=== PATIENT | male | born 1970 | race Caucasian/White ===

== ENCOUNTER 2017-04-03 23:34 | Emergency (ER) | payer MEDICARE ==
[2017-04-04] VITALS: BP 107/64; PULSE 120; RESP 20; TEMP 99; O2SAT 95
[2017-04-04] MEDS ORDERED: Oxycodone/Acetaminophen 5/325 mg Tab PO STA (00:30)
[2017-04-04] MEDS ORDERED: Oxycodone/Acetaminophen 5/325 mg Tab ONE (00:42)
--- NOTE | 2017-04-04 00:55 | ED PDOC ---
HPI: Back Time Seen by Provider: 04/04/17 00:26 Chief Complaint (Nursing): Back Pain Chief Complaint (Provider): Back pain and bleeding History Per: Patient History/Exam Limitations: no limitations Onset/Duration Of Symptoms: Hrs (x 5 hours) Current Symptoms Are (Timing): Better Additional Complaint(s): Graeme Ramesh is a 46 y/o male with a past medical history chronic back pain s/p laminectomy and spinal fusion surgery, who presents to the ED complaining of bleeding from a back incision site with associated back pain, onset at 7pm. Patient was seen earlier today (04/03/2017) at the [facility] for implantation of spinal stimulator. At 7pm after returning from procedure, he noticed dressing saturated with blood. Upon arrival to ED, bleeding has stopped. Patient did not fill Rx given for oxycodone. Denies fever, nausea, vomiting, diarrhea, shortness of breath, and chest pain. PMD: Nabor Linton MD Past Medical History Reviewed: Historical Data, Nursing Documentation, Vital Signs Vital Signs: Last Vital Signs Temp 99 F 04/03/17 23:57 Pulse 120 H 04/03/17 23:57 Resp 20 04/03/17 23:57 BP 107/64 04/03/17 23:57 Pulse Ox 95 04/03/17 23:57 - Medical History PMH: Anxiety, Back Problems Denies: Diabetes, Hepatitis, HIV, HTN, Seizures, Sexually Transmitted Disease - Surgical History Other surgeries: Laminectomies, Spinal fusion surgery, Gastric Bypass - Family History Family History: States: Unknown Family Hx - Social History Current smoker - smoking cessation education provided: No Alcohol: None Drugs: Denies - Allergies Allergies/Adverse Reactions: Allergies Allergy/AdvReac Type Severity Reaction Status Date / Time No Known Allergies Allergy Verified 09/30/14 15:22 Review of Systems ROS Statement: Except As Marked, All Systems Reviewed And Found Negative Constitutional: Negative for: Fever Cardiovascular: Negative for: Chest Pain Respiratory: Negative for: Cough, Shortness of Breath Gastrointestinal: Negative for: Nausea, Vomiting, Diarrhea Musculoskeletal: Positive for: Back Pain Skin: Positive for: Other (Bleeding from incision site on back) Physical Exam - Reviewed Nursing Documentation Reviewed: Yes Vital Signs Reviewed: Yes - Physical Exam Appears: Positive for: Well, Non-toxic, No Acute Distress Head Exam: Positive for: ATRAUMATIC, NORMAL INSPECTION, NORMOCEPHALIC Skin: Positive for: Normal Color, Warm, Dry Eye Exam: Positive for: Normal appearance Neck: Positive for: Normal, Painless ROM, Supple Back: Positive for: Other (Two incisions present on the back. Dressing above the right buttock is clean, dry, and intact with scant amount of dried blood. Dressing at the mid-spine is saturated with blood. Upon removal of dressing, no active bleeding and staple is intact) Neurologic/Psych: Positive for: Alert, Oriented - ECG O2 Sat by Pulse Oximetry: 95 (RA) Pulse Ox Interpretation: Normal Medical Decision Making Medical Decision Making: Time: 00:30 Clinical Impression: 46 y/o male with post-operative bleeding and back pain Plan: --Dressings changed in the ED --Patient given Percocet and is stable for discharge. Upon provider evaluation patient is medically stable, and requires no further treatment in the ED at this time. Patient will be discharged home. Counseling was provided and all questions were answered regarding diagnosis and need for follow up with PMD as scheduled. There is agreement to discharge plan. Return if symptoms persist or worsen. Scribe Attestation: Documented by Cecily Sears, acting as a scribe for Yassine Sandhu MD Provider Scribe Attestation: All medical record entries made by the Scribe were at my direction and personally dictated by me. I have reviewed the chart and agree that the record accurately reflects my personal performance of the history, physical exam, medical decision making, and the department course for this patient. I have also personally directed, reviewed, and agree with the discharge instructions and disposition. Disposition - Clinical Impression Clinical Impression: Postoperative bleeding from incision, Chronic back pain - Patient ED Disposition Is Patient to be Admitted: No Doctor Will See Patient In The: Office Counseled Patient/Family Regarding: Diagnosis, Need For Followup - Disposition Disposition: Routine/Home Disposition Time: 00:30 Condition: STABLE Instructions: Postoperative Bleeding (ED)
== END 2017-04-04 02:02 | disposition home or self-care (01) ==
LOC: H.ER 23:34
DX: T81.89XA Other complications of procedures, not elsewhere classified, initial encounter (principal); M54.9 Dorsalgia, unspecified; G89.29 Other chronic pain; F41.9 Anxiety disorder, unspecified

== ENCOUNTER 2017-05-14 14:34 | Emergency (ER) | payer MEDICARE ==
[2017-05-14 14:44] VITALS: BP 132/75; PULSE 105; RESP 16; TEMP 99; O2SAT 99
[2017-05-14] MEDS ORDERED: Oxycodone/Acetaminophen 5/325 mg Tab PO STA (15:01)
[2017-05-14] MEDS ORDERED: Oxycodone/Acetaminophen 5/325 mg Tab ONE (15:06)
--- NOTE | 2017-05-14 15:35 | ED PDOC ---
HPI: Back Time Seen by Provider: 05/14/17 14:36 Chief Complaint (Nursing): Back Pain Chief Complaint (Provider): Lower back pain History Per: Patient History/Exam Limitations: no limitations Onset/Duration Of Symptoms: Days (x2) Current Symptoms Are (Timing): Still Present Additional Complaint(s): Graeme Jaimes is a 46 year old male, with a past medical history of chronic back pain s/p lumbar fusion, who presents to the emergency department complaining of chronic lower back pain onset for 2 days. Patient reports pain has worsen in the last several days. He denies any trauma, heavy lifting, bowel or bladder dysfunction. PMD: None provided Past Medical History Reviewed: Historical Data, Nursing Documentation, Vital Signs Vital Signs: Last Vital Signs Temp 99.0 F 05/14/17 14:40 Pulse 105 H 05/14/17 14:40 Resp 16 05/14/17 14:40 BP 132/75 05/14/17 14:40 Pulse Ox 99 05/14/17 14:40 - Medical History PMH: Anxiety, Back Problems, Gall Bladder Disease, Kidney Stones (with Lithotripsy) Denies: Diabetes, Hepatitis, HIV, HTN, Seizures, Sexually Transmitted Disease - Surgical History Surgical History: Back Surgery, Cholecystectomy - Family History Family History: States: Unknown Family Hx - Social History Current smoker - smoking cessation education provided: No Alcohol: None Drugs: Denies - Home Medications Home Medications: Ambulatory Orders Medication Instructions Recorded oxyCODONE/Acetaminophen [Percocet 1 ea PO Q6 PRN #10 tab 05/14/17 5/325 mg Tab] - Allergies Allergies/Adverse Reactions: Allergies Allergy/AdvReac Type Severity Reaction Status Date / Time No Known Allergies Allergy Verified 09/30/14 15:22 Review of Systems ROS Statement: Except As Marked, All Systems Reviewed And Found Negative Gastrointestinal: Negative for: Other (no bowel dysfunction) Genitourinary Male: Negative for: Other (no bladder dysfunction) Musculoskeletal: Positive for: Back Pain (chronic lower back pain) Physical Exam - Reviewed Nursing Documentation Reviewed: Yes Vital Signs Reviewed: Yes - Physical Exam Appears: Positive for: Well, Non-toxic, No Acute Distress Head Exam: Positive for: ATRAUMATIC, NORMAL INSPECTION, NORMOCEPHALIC Skin: Positive for: Normal Color, Warm, DRY Eye Exam: Positive for: Normal appearance Neck: Positive for: Normal, Painless ROM, Supple Respiratory: Positive for: Normal Breath Sounds. Negative for: Respiratory Distress Back: Positive for: Other (LS Paraspinal tenderness). Negative for: Normal Inspection Extremity: Positive for: Other (straight leg raise test positive at 60 degrees) Neurologic/Psych: Positive for: Alert, Oriented - ECG O2 Sat by Pulse Oximetry: 99 (RA) Pulse Ox Interpretation: Normal Medical Decision Making Medical Decision Making: Initial Impression: Chronic lower back pain Initial Plan: --Motrin Tab --Percocet 5/325 mg Tab --reevaluation Pt reports feeling improved on re-eval , asking to go home Scribe Attestation: Documented by Ulises Jaeegr, acting as a scribe for Tessa OLIVIER. Provider Scribe Attestation: All medical record entries made by the Scribe were at my direction and personally dictated by me. I have reviewed the chart and agree that the record accurately reflects my personal performance of the history, physical exam, medical decision making, and the department course for this patient. I have also personally directed, reviewed, and agree with the discharge instructions and disposition. Disposition - Clinical Impression Clinical Impression: Back pain - Patient ED Disposition Is Patient to be Admitted: No - Disposition Disposition: Routine/Home Disposition Time: 17:40 Condition: STABLE Prescriptions: oxyCODONE/Acetaminophen [Percocet 5/325 mg Tab] 1 ea PO Q6 PRN #10 tab PRN Reason: Pain, Severe (8-10) Instructions: Back Pain (ED) Forms: [facility] (Bulgarian) - POA Present On Arrival: None
== END 2017-05-14 17:29 | disposition home or self-care (01) ==
LOC: H.ER 14:34
DX: M54.5 Low back pain (principal); G89.29 Other chronic pain; F41.9 Anxiety disorder, unspecified

== ENCOUNTER 2017-05-23 08:11 | Observation (INO) | payer MEDICARE ==
[2017-05-23 08:15] VITALS: BP 122/86; PULSE 128; TEMP 97; O2SAT 97; BMI 32.1
[2017-05-23] MEDS ORDERED: Sodium Chloride 0.9% 1,000 ML IV STA (09:13)
[2017-05-23 10:01] LABS: BASO % 0.2 % (0.0-2.0); HEMATOCRIT 40.5 % (35.0-51.0); LYMPH # 0.5 K/uL (1.0-4.3); LYMPH % 9.1 % (20.0-40.0); MEAN CELL VOLUME 90.4 fl (80.0-94.0); MEAN CORPUSCULAR HEMOGLOBIN 29.5 pg (27.0-31.0); MEAN CORPUSCULAR HGB CONC 32.6 g/dL (33.0-37.0); MEAN PLATELET VOLUME 7.7 fl (7.2-11.7); MONO # 0.5 K/uL (0.0-0.8); MONO % 7.9 % (0.0-10.0); NEUT # 4.9 K/uL (1.8-7.0); NEUT % 82.8 % (50.0-75.0); PLATELET COUNT 234 K/uL (130-400); RED CELL DISTRIBUTION WIDTH 15.6 % (11.5-14.5); WHITE BLOOD COUNT 5.9 K/uL (4.8-10.8)
[2017-05-23 10:11] LABS: ALB/GLOB RATIO 1.4 (1.0-2.1); ALKALINE PHOSPHATASE 80 U/L (38-126); ALT/SGPT 29 U/L (21-72); AST/SGOT 27 U/L (17-59); BILIRUBIN,TOTAL 1.1 mg/dl (0.2-1.3); BLOOD UREA NITROGEN 9 mg/dl (9-20); CALCIUM 9.4 mg/dL (8.4-10.2); CARBON DIOXIDE 24 mmol/L (22-30); CHLORIDE 100 mmol/L (98-107); GFR AFRICAN-AMERICAN > 60; GLUCOSE,RANDOM 91 mg/dL (75-110); LIPASE 27 U/L (23-300); POTASSIUM 4.1 MMOL/L (3.6-5.0); SODIUM 135 mmol/l (132-148); TOTAL PROTEIN 7.4 G/DL (6.3-8.2)
[2017-05-23 10:39] LABS: EOSINOPHIL 1 % (0-7); NEUTROPHIL 84 % (42-75); TOTAL CELLS COUNTED 100
--- NOTE | 2017-05-23 10:58 | ED PDOC ---
HPI: General Adult Time Seen by Provider: 05/23/17 08:20 Chief Complaint (Nursing): Back Pain Chief Complaint (Provider): vomiting History Per: Patient History/Exam Limitations: no limitations Onset/Duration Of Symptoms: Days (x 3) Additional Complaint(s): Graeme Jaimes is a 46 year old male, with a previous medical history of anxiety and chronic back pain, who presents to the ED with complaints of nausea associated with vomiting and back pain ongoing for 3 days. Patient denies any fever, chills or diarrhea. PMD: none provided Past Medical History Reviewed: Historical Data, Nursing Documentation, Vital Signs Vital Signs: Last Vital Signs Temp 97 F L 05/23/17 08:14 Pulse 128 H 05/23/17 08:14 Resp BP 122/86 05/23/17 08:14 Pulse Ox 97 05/24/17 11:53 - Medical History PMH: Anxiety, Back Problems, Gall Bladder Disease, Kidney Stones (with Lithotripsy) Denies: Diabetes, Hepatitis, HIV, HTN, Seizures, Sexually Transmitted Disease - Surgical History Surgical History: Back Surgery, Cholecystectomy - Family History Family History: States: Unknown Family Hx - Social History Current smoker - smoking cessation education provided: No Alcohol: None Drugs: Denies - Home Medications Home Medications: Ambulatory Orders Medication Instructions Recorded oxyCODONE/Acetaminophen [Percocet 1 ea PO Q6 PRN #10 tab 05/14/17 5/325 mg Tab] Docusate Sodium [Colace] 100 mg PO BID PRN #10 capsule 05/23/17 - Allergies Allergies/Adverse Reactions: Allergies Allergy/AdvReac Type Severity Reaction Status Date / Time No Known Allergies Allergy Verified 09/30/14 15:22 Review of Systems ROS Statement: Except As Marked, All Systems Reviewed And Found Negative Constitutional: Negative for: Fever Gastrointestinal: Positive for: Nausea, Vomiting. Negative for: Diarrhea Musculoskeletal: Positive for: Back Pain Physical Exam - Reviewed Nursing Documentation Reviewed: Yes Vital Signs Reviewed: Yes - Physical Exam Appears: Positive for: Well, Non-toxic, No Acute Distress Cardiovascular/Chest: Positive for: Regular Rate, Rhythm Respiratory: Positive for: CNT, Normal Breath Sounds Gastrointestinal/Abdominal: Positive for: Bowel Sounds, Soft, Tenderness (mild diffuse ) Neurologic/Psych: Positive for: Alert, Oriented - Laboratory Results Result Diagrams: 05/23/17 09:45 05/23/17 09:45 - ECG O2 Sat by Pulse Oximetry: 97 (RA) Pulse Ox Interpretation: Normal Medical Decision Making Medical Decision Making: Initial Impression: Viral gastroenteritis and acute on chronic back pain Initial Plan: * pepcid 20 mg PO * IV NS 1,000 ml at 150 ml/hr * zofran 4 mg IV * lipase * reevaluation Time: 1559 --CT ABD/Pelvis FINDINGS: LOWER THORAX: There is a 5 mm nodule in the right lateral lung base (series 3, image 18). There is bibasilar subsegmental atelectasis. LIVER: The liver is normal in size. There is a metallic coin in the right hepatic lobe. No intrahepatic biliary ductal dilatation. GALLBLADDER AND BILE DUCTS: Surgically absent. Multiple surgical clips are seen lateral to the right hepatic lobe. PANCREAS: Normal in size. No gross lesion or ductal dilatation. SPLEEN: Normal in size. ADRENALS: The right adrenal gland is normal. There is a stable 9 mm nodule in the left adrenal gland most compatible with an adenoma. KIDNEYS AND URETERS: Both kidneys are normal in size and there is homogeneous enhancement without hydronephrosis or focal mass. VASCULATURE: No aortic aneurysm. BOWEL: Status post gastric bypass surgery. The small bowel loops are normal in caliber. There is large amount of stool in the colon and fecal stasis in the rectum. No bowel dilatation or obstruction. APPENDIX: Normal appendix. PERITONEUM: No free fluid. No free air. LYMPH NODES: No enlarged lymph nodes. BLADDER: Normal in appearance. REPRODUCTIVE: The prostate gland is normal in size. BONES: No acute fracture. Advanced multilevel degenerative disc disease, status post posterior spinal fixation in the lower lumbar spine. A new neurostimulator lead terminates in the thoracic spinal canal. OTHER FINDINGS: None. IMPRESSION: 1. No acute abdominal or pelvic abnormality. 2. Severe constipation. No evidence of bowel obstruction. Time: 1630 Upon provider reevaluation patient, is feeling better, pt aware of Ct findings, medically stable and requires no further treatment in the ED at this time. Patient will be discharged home with Rx for Colace. Counseling was provided and all questions were answered regarding diagnosis and need for follow up with PCP. There is agreement to discharge plan. Return if symptoms persist or worsen. Clinical Impression: Constipation rx colace outpt follow up Scribe Attestation: Documented by Silvia Ramon, acting as a scribe for Jayla Rivas MD. Provider Scribe Attestation: All medical record entries made by the Scribe were at my direction and personally dictated by me. I have reviewed the chart and agree that the record accurately reflects my personal performance of the history, physical exam, medical decision making, and the department course for this patient. I have also personally directed, reviewed, and agree with the discharge instructions and disposition. Disposition - Clinical Impression Clinical Impression: Back strain, Constipation - Patient ED Disposition Is Patient to be Admitted: No Doctor Will See Patient In The: Office Counseled Patient/Family Regarding: Studies Performed, Diagnosis, Rx Given - Disposition Disposition: Routine/Home Disposition Time: 16:30 Condition: IMPROVED
[2017-05-23] MEDS ORDERED: Iohexol 240 (50 ml) PO ONE (12:09)
[2017-05-23] MEDS ORDERED: Iohexol 240 (50 ml) ONE (13:18)
[2017-05-23] MEDS ORDERED: Iohexol 300 100 ML IJ ONE (14:39)
[2017-05-23] MEDS ORDERED: Sodium Chloride 0.9% 50 ML IV ONE (14:39)
--- NOTE | 2017-05-23 16:17 | CT ---
PROCEDURE: CT Abdomen and Pelvis with contrast HISTORY: Left sided abdominal pain COMPARISON: 03/13/2014. TECHNIQUE: CT scan of the abdomen and pelvis was performed after intravenous administration of contrast. Oral contrast was not administered. Coronal and sagittal reformatted images were obtained. Contrast dose: 95 mL Omnipaque 300 Radiation dose: Total exam DLP = 1047.10 mGy-cm. This CT exam was performed using one or more of the following dose reduction techniques: Automated exposure control, adjustment of the mA and/or kV according to patient size, and/or use of iterative reconstruction technique. FINDINGS: LOWER THORAX: There is a 5 mm nodule in the right lateral lung base (series 3, image 18). There is bibasilar subsegmental atelectasis. LIVER: The liver is normal in size. There is a metallic coin in the right hepatic lobe. No intrahepatic biliary ductal dilatation. GALLBLADDER AND BILE DUCTS: Surgically absent. Multiple surgical clips are seen lateral to the right hepatic lobe. PANCREAS: Normal in size. No gross lesion or ductal dilatation. SPLEEN: Normal in size. ADRENALS: The right adrenal gland is normal. There is a stable 9 mm nodule in the left adrenal gland most compatible with an adenoma. KIDNEYS AND URETERS: Both kidneys are normal in size and there is homogeneous enhancement without hydronephrosis or focal mass. VASCULATURE: No aortic aneurysm. BOWEL: Status post gastric bypass surgery. The small bowel loops are normal in caliber. There is large amount of stool in the colon and fecal stasis in the rectum. No bowel dilatation or obstruction. APPENDIX: Normal appendix. PERITONEUM: No free fluid. No free air. LYMPH NODES: No enlarged lymph nodes. BLADDER: Normal in appearance. REPRODUCTIVE: The prostate gland is normal in size. BONES: No acute fracture. Advanced multilevel degenerative disc disease, status post posterior spinal fixation in the lower lumbar spine. A new neurostimulator lead terminates in the thoracic spinal canal. OTHER FINDINGS: None. IMPRESSION: 1. No acute abdominal or pelvic abnormality. 2. Severe constipation. No evidence of bowel obstruction.
== END 2017-05-23 16:57 | disposition home or self-care (01) ==
LOC: H.ER 08:11 → H.EROBSV 10:09
PROVIDERS: ADMIT Emergency Medicine; ATTEND Emergency Medicine
DX: A08.4 Viral intestinal infection, unspecified (principal); G89.29 Other chronic pain; K59.00 Constipation, unspecified; Z87.442 Personal history of urinary calculi; K82.9 Disease of gallbladder, unspecified; F41.9 Anxiety disorder, unspecified; M54.9 Dorsalgia, unspecified; Z98.84 Bariatric surgery status
CPT/HCPCS: 74177; 80053; 83690; 85025; 96374; 99282; G0378; J1885; J2405; J7040; Q9966; Q9967

== ENCOUNTER 2017-05-29 06:56 | Emergency (ER) | payer MEDICARE ==
[2017-05-29 06:56] VITALS: BMI 32.1
[2017-05-29 07:26] VITALS: BP 123/75; PULSE 86; RESP 18; TEMP 98.6; O2SAT 100
--- NOTE | 2017-05-29 07:40 | ED PDOC ---
Lower Extremity Pain/Injury Time Seen by Provider: 05/29/17 07:04 Chief Complaint (Nursing): Lower Extremity Problem/Injury Chief Complaint (Provider): knee pain History Per: Patient History/Exam Limitations: no limitations Onset/Duration Of Symptoms: Days (last night) Current Symptoms Are (Timing): Still Present Severity: Mild Additional History Per: Patient Additional Complaint(s): 46 y/o male c/o left knee pain that began last night. Patient notes that someone fell on his knee when he was asleep on the ground. Patient is able to bare weight on his knee, but it hurts to walk. Patient took no meds for pain. Denies weakness, numbness, headache, abdominal pain, or any other complaints. Past Medical History Reviewed: Historical Data, Nursing Documentation, Vital Signs Vital Signs: Last Vital Signs Temp 98.6 F 05/29/17 07:16 Pulse 86 05/29/17 07:16 Resp 18 05/29/17 07:16 BP 123/75 05/29/17 07:16 Pulse Ox 100 05/29/17 07:16 - Medical History PMH: Anxiety, Back Problems, Gall Bladder Disease, Kidney Stones (with Lithotripsy) Denies: Diabetes, Hepatitis, HIV, HTN, Seizures, Sexually Transmitted Disease - Surgical History Surgical History: Back Surgery, Cholecystectomy - Family History Family History: States: Unknown Family Hx - Social History Alcohol: None Drugs: Denies - Home Medications Home Medications: Ambulatory Orders Medication Instructions Recorded oxyCODONE/Acetaminophen [Percocet 1 ea PO Q6 PRN #10 tab 05/14/17 5/325 mg Tab] Docusate Sodium [Colace] 100 mg PO BID PRN #10 capsule 05/23/17 Ibuprofen [Motrin] 600 mg PO TID 7 Days 05/29/17 - Allergies Allergies/Adverse Reactions: Allergies Allergy/AdvReac Type Severity Reaction Status Date / Time No Known Allergies Allergy Verified 09/30/14 15:22 Review of Systems Constitutional: Negative for: Weakness Cardiovascular: Negative for: Chest Pain Respiratory: Negative for: Shortness of Breath Gastrointestinal: Negative for: Abdominal Pain Musculoskeletal: Positive for: Leg Pain (Left knee). Negative for: Neck Pain, Shoulder Pain, Back Pain, Foot Pain Neurological: Negative for: Weakness, Numbness, Headache Physical Exam - Reviewed Nursing Documentation Reviewed: Yes Vital Signs Reviewed: Yes - Physical Exam Appears: Positive for: Non-toxic, No Acute Distress Head Exam: Positive for: ATRAUMATIC, NORMAL INSPECTION, NORMOCEPHALIC Skin: Positive for: Warm, Dry Neck: Positive for: Normal, Painless ROM, Supple Cardiovascular/Chest: Positive for: Regular Rate, Rhythm Respiratory: Positive for: Normal Breath Sounds. Negative for: Rales, Rhonchi, Wheezing Back: Positive for: Normal Inspection. Negative for: L CVA Tenderness, R CVA Tenderness Extremity: Positive for: Tenderness (Mild tenderness below the left anterior patella), Capillary Refill (<2secs), Other (No laxity of the left knee joint). Negative for: Normal ROM (ROM causes pain to the left knee), Deformity, Swelling Neurologic/Psych: Positive for: Alert, Oriented. Negative for: Motor/Sensory Deficits - ECG O2 Sat by Pulse Oximetry: 100 (RA) Pulse Ox Interpretation: Normal - Radiology X-Ray: Interpreted by Me, Viewed By Me X-Ray Interpretation: No Acute Disease - Progress ED Course And Treament: 755: Stable. Ambulated with no issues. Fu with pcp. Is aaox3. Medical Decision Making Medical Decision Making: Impression: 46 y/o male c/o left knee pain that began last night. Plans: * XRAY left knee * Motrin PO Scribe Attestation Documented by Kateryna cortez acting as a scribe for Vinnie Puente MD. Provider Attestation: All medical record entries made by the Scribe were at my direction and personally dictated by me. I have reviewed the chart and agree that the record accurately reflects my personal performance of the history, physical exam, medical decision making, and the department course for this patient. I have also personally directed, reviewed, and agree with the discharge instructions and disposition. Disposition - Clinical Impression Clinical Impression: Knee injury - Patient ED Disposition Is Patient to be Admitted: No Counseled Patient/Family Regarding: Studies Performed, Diagnosis, Need For Followup, Rx Given - Disposition Referrals: [facility] [Outside] - 05/30/17 Disposition: Routine/Home Disposition Time: 07:56 Condition: STABLE Additional Instructions: Return if not better in 3 days. Prescriptions: Ibuprofen [Motrin] 600 mg PO TID 7 Days Instructions: Knee Pain (ED)
--- NOTE | 2017-05-29 09:42 | RAD ---
PROCEDURE: Left Knee Radiographs. HISTORY: Pain. COMPARISON: None. FINDINGS: BONES: A small bone island is seen at the medial proximal tibial metaphysis. . No fracture. JOINTS: Normal. No osteoarthritis. No dislocation. JOINT EFFUSION: None. OTHER FINDINGS: Heterotopic calcifications are seen the soft tissues anterior to the patella as well as proximal tibia IMPRESSION: No acute fracture dislocation identified.
== END 2017-05-29 08:12 | disposition home or self-care (01) ==
LOC: H.ER 06:56
DX: S89.92XA Unspecified injury of left lower leg, initial encounter (principal); W22.8XXA Striking against or struck by other objects, initial encounter; Y92.89 Other specified places as the place of occurrence of the external cause; F41.9 Anxiety disorder, unspecified